=== PATIENT | female | born 2000 | race Caucasian/White ===

== ENCOUNTER → 2018-04-22 | Outpatient (REF) | payer OTHER ==
[2018-04-22 14:49] LABS: CHLAMYDIA DNA AMPLIFICATION NEGATIVE (NEGATIVE); GC DNA AMPLIFICATION NEGATIVE (NEGATIVE)
== END ==
LOC: M SFHCWAGY 12:35
DX: Z11.3 Encounter for screening for infections with a predominantly sexual mode of transmission (principal)

== ENCOUNTER → 2018-12-01 | Outpatient (CLI) | payer OTHER | LOC: M WUC 10:53 | PROVIDERS: ATTEND Physician Assistant | DX: F43.23 Adjustment disorder with mixed anxiety and depressed mood (principal) ==

== ENCOUNTER → 2019-05-25 | Outpatient (REF) | payer OTHER | LOC: M SFHCWAGY 09:33 | PROVIDERS: ATTEND Nurse Practitioner Women's Health | DX: R85.611 Atypical squamous cells cannot exclude high grade squamous intraepithelial lesion on cytologic smear of anus (ASC-H) (principal); R87.612 Low grade squamous intraepithelial lesion on cytologic smear of cervix (LGSIL); Z12.4 Encounter for screening for malignant neoplasm of cervix ==

== ENCOUNTER → 2020-06-21 | Outpatient (REF) | payer OTHER | LOC: M SFHCWAGY 09:53 | PROVIDERS: ATTEND Nurse Practitioner Women's Health | DX: Z12.4 Encounter for screening for malignant neoplasm of cervix (principal) ==

== ENCOUNTER → 2021-03-15 | Outpatient (REF) | LOC: M LABSMTC 12:11 | PROVIDERS: ATTEND Pediatrics | DX: Z11.52 Encounter for screening for COVID-19 (principal) ==

== ENCOUNTER → 2021-04-17 | Outpatient (REF) | LOC: M LABSMTC 13:19 | PROVIDERS: ATTEND Pediatrics | DX: Z20.822 Contact with and (suspected) exposure to COVID-19 (principal) ==

== ENCOUNTER → 2023-04-24 | Outpatient (REF) | payer OTHER | LOC: M LAB REF 13:31 | PROVIDERS: ATTEND Registered Nurse | DX: R30.0 Dysuria (principal) ==

== ENCOUNTER → 2023-08-17 | Outpatient (REF) | payer OTHER | LOC: M LAB REF 21:02 | PROVIDERS: ATTEND Physician Assistant Medical | DX: L02.31 Cutaneous abscess of buttock (principal) ==